=== PATIENT | female | born 1970 | race Hispanic/Latino ===

== ENCOUNTER 2017-05-14 12:30 | Emergency (ER) | payer BC ==
[2017-05-14 12:31] VITALS: BMI 38.0
[2017-05-14 12:45] VITALS: RESP 18; TEMP 98.6; O2SAT 99
--- NOTE | 2017-05-14 13:31 | ED PDOC ---
Arrival/HPI - General Historian: Patient - General Chief Complaint: Upper Extremity Problem/Injury Time Seen by Provider: 05/14/17 13:11 - History of Present Illness Narrative History of Present Illness (Text): 05/14/17 13:24 Mrs. 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 Pt reports the pain is a sharp 10/ 10 constant pain starting at her lateral shoulder with radiation down her left arm. Pain symptoms started 24 hours prior to arrival. Pain is worsened with movement and relieved with rest. Patient denies trauma or exertion. Pt denies chest pain, shortness of breath, nausea, vomiting, sweating. She denies any previous history of this type of pain. (Maury Toscano) Past Medical History - Provider Review Nursing Documentation Reviewed: Yes - Past History Past History: No Previous - Infectious Disease Hx of Infectious Diseases: None - Cardiac Hx Cardiac Disorders: No - Pulmonary Hx Respiratory Disorders: No - Neurological Hx Neurological Disorder: No (FIBROMYALGIA) - Renal Hx Renal Disorder: Yes Hx Kidney Stones: Yes Hx Renal Cancer: Yes Other/Comment: LEFT NEPHRECTOMY,REMOVAL OF RENAL STENT - Endocrine/Metabolic Hx Endocrine Disorders: No - Hematological/Oncological Hx Blood Disorders: Yes Hx Cancer: Yes (renal) - Integumentary Hx Dermatological Disorder: No - Musculoskeletal/Rheumatological Hx Arthritis: Yes Hx Falls: No - Gastrointestinal Hx Gastrointestinal Disorders: Yes Hx Gall Bladder Disease: Yes (CHOLECYSTECTOMY) - Psychiatric Hx Psychophysiologic Disorder: No Hx Substance Use: No - Surgical History Hx Cholecystectomy: Yes Other/Comment: breast reduction , nephrostomy, renal stent, nephectomy - Anesthesia Hx Anesthesia: Yes Hx Anesthesia Reactions: Yes Hx Malignant Hyperthermia: Yes - Patient History Narrative Patient History: Chronic pain associated with suspected Adult Stills Disease (Maury Toscano) Family/Social History - Physician Review Nursing Documentation Reviewed: Yes Family/Social History: No Known Family HX Smoking Status: Never Smoked Hx Alcohol Use: No Hx Substance Use: No Allergies/Home Meds Allergies/Adverse Reactions: Allergies ibuprofen Adverse Reaction (Verified 05/14/17 12:42) NAUSEA Home Medications: Home Meds Medication Instructions Recorded Confirmed DULoxetine [Cymbalta] 30 mg PO DAILY 05/14/17 05/14/17 Febuxostat [Uloric] 40 mg PO DAILY 05/14/17 05/14/17 Fentanyl 1 each TD QOTHERDAY 05/14/17 05/14/17 Tocilizumab [Actemra] 0 mg SC QWK 05/14/17 05/14/17 oxyCODONE [oxyCODONE Immediate 0 mg PO PRN PRN 05/14/17 05/14/17 Release Tab] Review of Systems - Physician Review All systems were reviewed & negative as marked: Yes - Review of Systems Respiratory: absent: SOB, Cough Cardiovascular: absent: Chest Pain, Palpitations Gastrointestinal: absent: Nausea, Vomiting Musculoskeletal: Arthralgias (left shoulder) Neurological: absent: Focal Weakness Physical Exam Vital Signs Reviewed: Yes Temperature: Afebrile Blood Pressure: Hypertensive Pulse: Regular Respiratory Rate: Normal Appearance: Positive for: Well-Appearing Pain Distress: None Mental Status: Positive for: Alert and Oriented X 3 - Systems Exam Head: Present: Atraumatic, Normocephalic Pupils: Present: PERRL Extroacular Muscles: Present: EOMI Conjunctiva: Present: Normal Neck: Present: Normal Range of Motion Respiratory/Chest: Present: Clear to Auscultation, Good Air Exchange. No: Respiratory Distress, Accessory Muscle Use Cardiovascular: Present: Regular Rate and Rhythm, Normal S1, S2. No: Murmurs Abdomen: Present: Normal Bowel Sounds. No: Tenderness, Distention, Peritoneal Signs Upper Extremity: Present: NORMAL PULSES, Neurovascularly Intact, Norm 2-Pt Discrimination. No: Normal ROM (left shoulder with limited passive motion primarily with abduction) Lower Extremity: Present: Normal Inspection. No: Edema Neurological: Present: GCS=15, CN II-XII Intact, Speech Normal Skin: Present: Warm, Dry, Normal Color. No: Rashes Vital Signs Temp Pulse Resp BP Pulse Ox 05/14/17 15:04 65 18 158/79 H 99 05/14/17 12:44 98.6 F 68 18 161/89 H 99 Medical Decision Making - RAD Interpretation Dry Starch Supervisor: Radiologist - EKG Interpretation Interpreted by ED Physician: Yes Type: 12 lead EKG ED Course and Treatment: 05/14/17 14:28 Patient seen and examined with resident Came up with treatment and disposition plan with resident 46yo female with L. shoulder pain, no trauma or injury. No focal neuro deficits and no vasc. 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 Differential Diagnosis included but are not limited to: - Subacromial bursitis vs. tendinopathy - Atypical angina Plan: - Imaging: EKG, Left shoulder x-ray - Education on NSAIDS and shoulder immobilization with sling - Reassess and disposition Progress Notes: EKG: NSR, Rate of 55, No ST elevations or T wave inversions - No acute changes from previous EKG 05/14/17 15:16 - shoulder xray showing normal GH and AC joints and 9 mm calcific tendinitis (Maury Toscano) - RAD Interpretation Narrative RAD Interpretations (Text): 05/14/17 15:14 - Normal glenohumeral and acromioclavicular joints preserved. - 9 mm calcification most likely representing calcific tendinitis (Maury Toscano) Radiology Orders: 05/14/17 13:22 SHOULDER LEFT [RAD] Stat - EKG Interpretation EKG Interpretation (Text): 05/14/17 14:04 NSR, Bradycardia with rate of 55 bpm, No ST elevations or abnormal T wave inversions (Maury Toscano) - PA / TANK COOPER / Resident Statement MD/DO has reviewed & agrees with the documentation as recorded. MD/DO has examined the patient and agrees with the treatment plan. Disposition/Present on Arrival - Present on Arrival Any Indicators Present on Arrival: No History of DVT/PE: No History of Uncontrolled Diabetes: No Urinary Catheter: No History of Decub. Ulcer: No History Surgical Site Infection Following: None - Disposition Have Diagnosis and Disposition been Completed?: Yes Disposition Time: 15:27 Patient Plan: Discharge - Disposition Diagnosis: Calcific bursitis of shoulder Disposition: HOME/ ROUTINE Patient Problems: Current Active Problems Problem Status Onset Calcific bursitis of shoulder Acute Condition: STABLE Discharge Instructions (ExitCare): Shoulder Bursitis (ED), Calcific Tendinitis (ED) Additional Instructions: Mrs. Flores, thank you for letting us take care of you today. Your provider was Dr. Toscano. You were treated for Calcific bursitis of shoulder. The emergency medical care you received today was directed at your acute symptoms. If you were prescribed any medication, please fill it and take as directed. It may take several days for your symptoms to resolve. Return to the Emergency Department if your symptoms worsen, do not improve, or if you have any other problems. Please contact your doctor or call one of the physicians/clinics you have been referred to that are listed on the Patient Visit Information form that is included in your discharge packet. Bring any paperwork you were given at discharge with you along with any medications you are taking to your follow up visit. Our treatment cannot replace ongoing medical care by a primary care provider (PCP) outside of the emergency department. Thank you for allowing the [facility] team to be part of your care today. Referrals: Aniket Maharaj, DO [Primary Care Provider] - Follow up with primary
[2017-05-14 15:04] VITALS: BP 158/79; PULSE 65
--- NOTE | 2017-05-14 15:08 | RAD ---
PROCEDURE: Radiographs of the Left Shoulder HISTORY: shoulder pain COMPARISON: No prior. FINDINGS: BONES: Normal. No fracture. JOINTS: Normal. Glenohumeral and acromioclavicular joints preserved. No osteoarthritis. SOFT TISSUES: There is a 9 mm calcification most likely representing calcific tendinitis OTHER FINDINGS: None. IMPRESSION: Calcific tendinitis. No acute findings
--- NOTE | 2017-05-14 20:33 | CARD ---
APPROVED REPORT EKG Measurement Heart [id number] <Conclusion> Sinus bradycardia Otherwise normal ECG
== END 2017-05-14 15:55 | disposition home or self-care (01) ==
LOC: ED 12:30
DX: M75.52 Bursitis of left shoulder (principal)